=== PATIENT | female | born 1990 ===

== ENCOUNTER 2024-09-25 11:15 | Inpatient (IN) | payer OTHER ==
[~2024-09-25] VITALS: Ht 175.3 cm; Wt 44.2 kg
[2024-09-25 12:06] VITALS: BP 128/75
[2024-09-25 12:12] VITALS: BP 130/87
[2024-09-25 12:47] LABS: HEMATOCRIT 40.3 % (36.0-45.00); HEMOGLOBIN 13.1 g/dL (12.0-15.00); MEAN CELL VOLUME 89.1 fL (80.00-100.00); MEAN CORPUSCULAR HGB CONC 32.5 g/dl (32.0-36.0); PLATELET COUNT 255 K/uL (150-450); RED BLOOD COUNT 4.52 M/uL (4.00-6.00); RED CELL DISTRIBUTION WIDTH 13.4 % (11.5-14.5)
[2024-09-25 13:10] LABS: INR 1.01; PARTIAL THROMBOPLASTIN TIME 29.1 SECONDS (22.0-34.0)
[2024-09-25 13:17] LABS: RH POSITIVE
[2024-09-25 13:23] LABS: ALKALINE PHOSPHATASE 82 U/L (50-136); ALT/SGPT 22 U/L (12-78); ANION GAP 8 (10.0-20.0); AST/SGOT 18 U/L (15-37); BILIRUBIN TOTAL 0.43 mg/dL (0.3-1.2); BLOOD UREA NITROGEN 10 mg/dL (7-18); BUN CREA RATIO 16 (7.0-25.0); CALCIUM 9.1 mg/dL (8.5-10.1); CARBON DIOXIDE 31 mEq/L (21-32); CHLORIDE 105 mmol/L (98-107); CREATININE SERUM 0.64 mg/dL (0.55-1.02); GLUCOSE FASTING 88 mg/dL (65-100); OSMOLALITY SERUM 278 MOSM/KG (275-295); POTASSIUM 3.84 mEq/L (3.5-5.1); SODIUM 140 mmol/L (136-145)
[2024-09-25 13:26] LABS: HCG QUANTITATIVE < 1 mUI/mL (1-3)
[2024-10-05] MEDS ORDERED: CEFAZOLIN SODIUM 1,000 MG VIAL ONE (06:54)
[2024-10-05] MEDS ORDERED: BUPIVACAINE HCL/MPF 0.5% 30ML VIAL ONE (07:32)
[2024-10-05] MEDS ORDERED: CHLORHEXIDINE GLUCONATE 120 ML BOTTLE TOP ONE (07:33)
[2024-10-05] MEDS ORDERED: POVIDONE-IODINE 118 ML BOTT TOP ONE (07:34)
[2024-10-05] MEDS ORDERED: HEMOSTATIC MATRIX WITH THROMBIN KIT TOP ONE (11:28)
[2024-10-05] MEDS ORDERED: SURGIFLO APPLICATOR 1 EACH APPL TOP ONE (11:28)
[2024-10-05] MEDS ORDERED: ACETAMINOPHEN 500 MG GEL..CAP PO SCH (12:55)
[2024-10-05] MEDS ORDERED: GABAPENTIN 300 MG CAPSULE PO SCH (12:56)
[2024-10-05] MEDS ORDERED: OxyCODONE HCL 5 MG TABLET (ROXICODONE) PO PRN (13:00)
[2024-10-05] MEDS ORDERED: PROMETHAZINE HCL 25 MG/ML AMPUL IM PRN (13:00)
[2024-10-05] MEDS ORDERED: RINGERS SOLUTION,LACTATED 1,000 ML IV SCH (13:00)
[2024-10-05 14:35] VITALS: BP 128/75
[2024-10-05 17:05] VITALS: BP 136/82
[2024-10-05 20:43] VITALS: BP 130/77
[2024-10-05 23:51] VITALS: BP 107/65
[2024-10-06 03:24] LABS: HEMATOCRIT 36.2 % (36.0-45.00); HEMOGLOBIN 12.1 g/dL (12.0-15.00); MEAN CELL VOLUME 88.3 fL (80.00-100.00); MEAN CORPUSCULAR HEMOGLOBIN 29.6 pg (27.00-32.0); MEAN CORPUSCULAR HGB CONC 33.5 g/dl (32.0-36.0); PLATELET COUNT 236 K/uL (150-450); RED CELL DISTRIBUTION WIDTH 13.3 % (11.5-14.5)
[2024-10-06 04:30] VITALS: BP 112/70
[2024-10-06 08:00] VITALS: BP 116/79
== END 2024-10-06 09:22 | disposition home or self-care (01) | DRG 743 ==
LOC: SURH 10-03 11:15 → O/R 10-05 06:00 → OB/GYN 10-05 14:05
PROVIDERS: ADMIT Student in an Organized Health Care Education/Training Program; ATTEND Student in an Organized Health Care Education/Training Program
PROC: 0UT74ZZ Resection of Bilateral Fallopian Tubes, Percutaneous Endoscopic Approach (ICD-10-PCS; 2024-10-05)
PROC: 0UB04ZZ Excision of Right Ovary, Percutaneous Endoscopic Approach (ICD-10-PCS; 2024-10-05)
PROC: 0TN64ZZ Release Right Ureter, Percutaneous Endoscopic Approach (ICD-10-PCS; 2024-10-05)
PROC: 0WBH4ZZ Excision of Retroperitoneum, Percutaneous Endoscopic Approach (ICD-10-PCS; 2024-10-05)
PROC: 0DBP4ZZ Excision of Rectum, Percutaneous Endoscopic Approach (ICD-10-PCS; 2024-10-05)
PROC: 8E0W4CZ Robotic Assisted Procedure of Trunk Region, Percutaneous Endoscopic Approach (ICD-10-PCS; 2024-10-05)
PROC: 0UT94ZZ Resection of Uterus, Percutaneous Endoscopic Approach (ICD-10-PCS; principal; 2024-10-05 07:00)
DX: D25.9 Leiomyoma of uterus, unspecified (principal); N85.2 Hypertrophy of uterus; R14.0 Abdominal distension (gaseous); D27.0 Benign neoplasm of right ovary; N83.11 Corpus luteum cyst of right ovary; N80.399 Endometriosis of the pelvic peritoneum, other specified sites, unspecified depth; N80.519 Endometriosis of the rectum, unspecified depth
CPT/HCPCS: 58571; 58661; 58662; 50715; 52000; S2900

== ENCOUNTER 2024-09-25 14:22 | Outpatient (CLI) | payer OTHER | END 2024-09-25 14:35 | disposition home or self-care (01) | LOC: RAD 14:22 | PROVIDERS: ATTEND Internal Medicine | DX: N93.9 Abnormal uterine and vaginal bleeding, unspecified (principal) ==